=== PATIENT | female | born 1960 | race Caucasian/White ===

== ENCOUNTER → 2021-03-09 15:19 | Outpatient (CLI) | payer OTHER, SELFPAY | LOC: LABSPEC 15:23 | PROVIDERS: PCP Student in an Organized Health Care Education/Training Program; Referring Provider Otolaryngology Otolaryngology/Facial Plastic Surgery; Visit Provider Otolaryngology Otolaryngology/Facial Plastic Surgery | DX: J32.8 Other chronic sinusitis (principal) | CPT/HCPCS: 87070; 87205 ==

== ENCOUNTER 2021-06-13 11:15 | Emergency (ER) | payer BC, SELFPAY ==
[2021-06-13 11:16] VITALS: BP 173/98; PULSE 98; RESP 16; TEMP 35.8; O2SAT 99; BMI 46.9
--- NOTE | 2021-06-13 11:19 | NURSING ---
NO OLD EKGS
--- NOTE | 2021-06-13 11:20 | RAD_ITS ---
STUDY: X-RAY CHEST REASON FOR EXAM: Female, 60 years old. Chest pain TECHNIQUE: Single AP portable view of the chest. COMPARISON: None. FINDINGS: Mild elevation of the right hemidiaphragm. The lungs are clear and expanded. There is no demonstrated pleural abnormality. Normal size heart. Normal mediastinum and kelle. Normal visualized pulmonary arteries. Mild tortuosity of the thoracic aorta. Stable soft tissues and osseous structures. There is no demonstrated abnormality of the visualized soft tissue structures of the upper abdomen. RAD/Chest 1 View (Portable) IMPRESSION: Normal x-ray examination of the chest. Electronically Signed: Tad Todd MD at 12:02 EDT ,
--- NOTE | 2021-06-13 11:20 | EKG12_ITS ---
Test Reason : Blood Pressure : / mmHG Vent. Rate : 103 BPM Atrial Rate : 103 BPM P-R Int : 124 ms QRS Dur : 080 ms QT Int : 336 ms P-R-T Axes : 037 023 005 degrees QTc Int : 440 ms Sinus tachycardia Nonspecific ST abnormality Abnormal ECG Confirmed by SAKINA LEOS, LAURA ([id number]), web content editor DARA STARR ([id number]) on 06/16/2021 10:56:11 AM Referred By: DEV Confirmed By:LAURA PRESLEY MD
[2021-06-13 11:26] VITALS: PULSE 99; RESP 18; O2SAT 100
--- NOTE | 2021-06-13 11:36 | EDS_ITS ---
HPI History of Present Illness Chief Complaint: Chest Pain Narrative Narrative: 60-year-old female presenting with chest heaviness. She states has been intermittent for the last couple of days. She describes it as a sensation of just finishing a long run and how you feel heavy in the chest. She states that she does not feel short of breath, nauseous. She is not been diaphoretic. She does not have any lightheadedness. She states that distantly about 10 years ago she was hospitalized for chest pain and at that time they believed she had a previous AK. She states she had a normal cardiac catheterization. She states she used to have high blood pressure but was able to wean off of it because her blood pressures became normal. She does admit that she has gained weight since that time. She admits to sometimes having lower extremity edema which is worse recently. She states that she does ride around a lot for work and thinks this is the contributing factor. She currently takes no other medications for anything except for supplements. [facility] Medical History Diverticulitis HTN (hypertension) Home Medications ciprofloxacin HCl 500 mg PO BID #14 tablet 05/02/16 [Rx Last Taken Unknown] metronidazole 500 mg PO Q8H #30 tab 05/02/16 [Rx Last Taken Unknown] Allergy/AdvReac Type Severity Reaction Status Date / Time morphine Allergy Other Verified 06/13/21 11:16 Social History Smoking Status: Never smoker [facility] ED Constitutional Constitutional ED: Denies chills or fever(s) Eyes Eyes: Denies blurry vision or change in vision ENT ENT ED: Denies rhinorrhea or sore throat Cardiovascular Cardiovascular: Reports as per HPI Respiratory/Chest Respiratory/Chest: Denies cough or dyspnea Gastrointestinal Gastrointestinal: Denies abdominal pain, diarrhea, nausea or vomiting Genitourinary Genitourinary ED: Denies dysuria or hematuria Musculoskeletal Musculoskeletal: Denies arthralgias or myalgias Integumentary Denies rash Neurologic Neurologic: Denies headache(s) or paresthesias Psychiatric Psychiatric: Denies anxiety or depression EXAM Physical Exam Const Vital Signs: 06/13/21 11:16 06/13/21 11:26 06/13/21 11:28 Temperature 96.5 F L Temperature Source Temporal Pulse Rate 98 99 Respiratory Rate 16 18 Respiratory Effort Normal Blood Pressure 173/98 H Blood Pressure Mean 123 Pulse Ox 99 100 Oxygen Delivery Method Room Air Room Air 06/13/21 13:48 Temperature Temperature Source Pulse Rate 79 Respiratory Rate 16 Respiratory Effort Blood Pressure 163/91 H Blood Pressure Mean 115 Pulse Ox 99 Oxygen Delivery Method Room Air Positive well nourished General Appearance ED: NAD; Negative for pallor HEENT Reports moist mucous membranes normocephalic and atraumatic Eyes PERRL and EOMs intact bilaterally Chest Wall inspection of chest normal Resp normal respiratory effort and clear to auscultation bilaterally Cardio regular rate and regular rhythm Extremity General Extremety ED: Negative for tenderness Neuro oriented x3 and CN's II-XII intact bilaterally Sensorium / Orientation: awake and alert Psych mental status grossly normal Skin General Skin Exam: Negative for jaundice or pallor MDM MDM MDM Narrative Medical decision making narrative: Patient presenting with chest pain. EKG on my interpretation shows a sinus tachycardia with a ventricular to 102 bpm without sign of ischemic change. CBC and BMP are unremarkable. High- sensitivity troponin initially is 3. Delta troponin is 4. Chest x-ray my interpretation shows no acute cardiopulmonary process and the radiologist does agree. From a cardiac standpoint I feel she can be discharged. I do not believe she presents like a PE does not have any sharp or pleuritic pain. Patient's blood pressure is noted to be elevated today. She states is not usual ly this high. She is a history of hypertension but had been able to come off of medications. She wishes to follow-up outpatient. She asked for referral because her physician lives in [facility]. This was provided. Patient discharged in stable condition. Impression: 1. Chest pain 2. Elevated blood pressure Lab Data Attestation: I reviewed the patient's lab results. Labs: Laboratory Results - last 24 hr 06/13/21 06/13/21 06/13/21 11:23 11:23 14:00 WBC 9.8 RBC 4.77 Hgb 14.2 Hct 43.0 MCV 90.1 MCH 29.8 MCHC 33.0 RDW Std Deviation 48.0 H RDW Coeff of [place] 14.5 Plt Count 220 MPV 11.8 Immature Gran % (Auto) 0.700 Neut % (Auto) 57.6 Lymph % (Auto) 33.3 [place] % (Auto) 6.5 Eos % (Auto) 1.6 Baso % (Auto) 0.3 Absolute Neuts (auto) 5.7 Absolute Lymphs (auto) 3.27 Nucleated RBC % 0 Sodium 137 Potassium 3.9 Chloride 106 Carbon Dioxide 26.0 Anion Gap 5 BUN 13 Creatinine 0.77 Estim Creat Clear Calc 65.07 Est GFR (MDRD) Af Amer 99 Est GFR (MDRD) Non-Af 82 BUN/Creatinine Ratio 16.9 Glucose 111 H Calcium 9.2 Troponin I High Sens < 3 L 4 Radiography Diagnostic Testing: Clinical Impression(s) from Imaging Studies Chest X-Ray 06/13/21 11:20 IMPRESSION: Normal x-ray examination of the chest. Electronically Signed: Tad Todd MD at 12:02 EDT , Discharge Plan Triage Chief Complaint: Chest Pain Other Complaint: Chest Other ED Provider: Jay Dodge Dx/Rx/DC Orders Instructions: ED Chest Pain, Noncardiac, ED Hypertension, To Be Confirmed Prescriptions: No Action metronidazole 500 MG tablet 500 mg PO Q8H Qty: 30 RF: 0 ciprofloxacin HCl 500 MG tablet 500 mg PO BID Qty: 14 RF: 0 Primary Care Provider: Jace Ahuja Referrals: Jace Ahuja DO [Primary Care Provider] - Disposition Disposition: Home, Self Care
[2021-06-13 11:45] LABS: Absolute Lymphocyte Count 3.27 X10^3/uL (0.83-4.51); Absolute Neutrophil Count 5.7 X10^3/uL (2.0-7.7); Basophil# 0.03 X10^3/uL; Basophil% 0.3 % (0-1); Eosinophil# 0.16 X10^3/uL; Eosinophils% 1.6 % (0-5); Hemoglobin 14.2 g/dL (12.0-15.0); Lymphocyte # 3.27 X10^3/ul (0.83-4.51); Lymphocyte % 33.3 % (19-41); Mean Corpuscular Hgb 29.8 pg (27.0-32.0); Mean Corpuscular Volume 90.1 fL (81-99); Mean Platelet Vol. 11.8 fl (6.2-12.0); Monocyte# 0.64 X10^3/uL; Monocyte% 6.5 % (0-10); NRBC Flagged by Analyzer 0 % (0-5); Neutrophil # 5.65 X10^3/uL (2.7-7.7); Neutrophil % 57.6 % (47-70); Platelet Count 220 K/mm3 (150-450); RBC Distribution Width CV 14.5 % (11.6-14.6); Red Blood Count 4.77 M/mm3 (4.2-5.4); White Blood Count 9.8 K/mm3 (4.4-11.0)
[2021-06-13 12:03] LABS: Anion Gap 5 (5-15); BUN 13 mg/dL (7-18); BUN/Creat Ratio 16.9 RATIO (10-20); Calcium,Total 9.2 mg/dL (8.5-10.1); Chloride 106 mmol/L (98-107); Creatinine, Serum 0.77 mg/dL (0.55-1.02); EST Glomerular Filtration Rate 82 mL/min (>60); Est Glom Filt Rate - Afr Amer 99 mL/min (>60); Estimated Creatinine Clearance 65.07 ml/min; Glucose 111 mg/dL (74-106); Potassium 3.9 mmol/L (3.5-5.1); Sodium Level 137 mmol/L (136-145); Troponin-I HS < 3 pg/mL (3.0-54.0)
[2021-06-13 13:48] VITALS: BP 163/91; PULSE 79; RESP 16; O2SAT 99
[2021-06-13 14:27] LABS: Troponin-I HS 4 pg/mL (3.0-54.0)
[2021-06-13 15:00] VITALS: BP 170/86; PULSE 71; RESP 16; O2SAT 96
[2021-06-13 15:02] VITALS: BP 170/86; PULSE 71; RESP 16; O2SAT 95
== END 2021-06-13 15:03 | disposition home or self-care (01) ==
PROVIDERS: Emergency Provider Student in an Organized Health Care Education/Training Program; PCP Student in an Organized Health Care Education/Training Program; Visit Provider Student in an Organized Health Care Education/Training Program
DX: R07.9 Chest pain, unspecified (principal); R03.0 Elevated blood-pressure reading, without diagnosis of hypertension
CPT/HCPCS: 71045; 80048; 84484; 85025; 93005; 99284; J7030; A4216

== ENCOUNTER 2024-04-15 19:04 | Emergency (ER) | payer BC, SELFPAY ==
[2024-04-15 19:11] VITALS: BP 186/98; PULSE 100; RESP 16; TEMP 36.6; O2SAT 100
[2024-04-15 19:13] VITALS: BMI 28.8
[2024-04-15] MEDS: Metoprolol(XL)Succ 50 MG Tablet PO (20:17)
--- NOTE | 2024-04-15 20:17 | EDS_ITS ---
HPI History of Present Illness Chief Complaint: Hypertension Narrative Narrative: 63-year-old female with history of high blood pressure has been out of her medication for 4 days and presents with elevated blood pressure. She states she cannot fill her medication until her primary care appointment next week. She takes metoprolol 50 mg and atorvastatin in the morning. She states this evening she could tell her blood pressure was up but cannot describe exactly how. She went to the fire station and a manual reading was 200 systolic prompting her to come in. She denies headache, chest pain, shortness of breath, nausea or vomiting, abdominal or flank pain, or hematuria. [facility] Medical History HTN (hypertension) Diverticulitis Home Medications ?Medication ?Instructions ?Recorded ?Last Taken ?Type ciprofloxacin HCl 500 mg tablet 500 mg PO BID ##14 05/02/16 Unknown Rx metronidazole 500 mg tablet 500 mg PO Q8H #30 tabs 05/02/16 Unknown Rx Allergy/AdvReac Type Severity Reaction Status Date / Time morphine Allergy Other Verified 04/15/24 19:13 Surgical History (Updated 04/15/24 @ 19:58 by Lauren Adame) History of partial hysterectomy Social History Smoking Status: Current some day smoker tobacco type: cigarettes EXAM Physical Exam Const Vital Signs: 04/15/24 19:11 04/15/24 19:56 Temperature 97.8 F Temperature Source Temporal Pulse Rate 100 Respiratory Rate 16 Respiratory Effort Normal Respiratory Pattern Normal Blood Pressure 186/98 H Blood Pressure Mean 127 Pulse Ox 100 Oxygen Delivery Method Room Air Discharge Plan Triage Chief Complaint: Hypertension ED Midlevel Provider: Mable Ramirez ED Provider: Provider,Ed Physician Dx/Rx/DC Orders Prescriptions: No Action metronidazole 500 MG tablet 500 mg PO Q8H Qty: 30 0RF ciprofloxacin HCl 500 MG tablet 500 mg PO BID Qty: 14 0RF Primary Care Provider: Jace Ahuja Referrals: Jace Ahuja DO [Primary Care Provider] - Print Language: Ecuadorean
--- NOTE | 2024-04-15 20:17 | EX.ED.DYSGE1 ---
HPI <JULIÁN Johnson - Last Filed: 04/15/24 21:29> History of Present Illness Chief Complaint: Hypertension Narrative Narrative: 63-year-old female with history of high blood pressure has been out of her medication for 4 days and presents with elevated blood pressure. She states she cannot fill her medication until her primary care appointment next week. She takes metoprolol 50 mg and atorvastatin in the morning. She states this evening she could tell her blood pressure was up but cannot describe exactly how. She went to the [employer] station and a manual reading was 200 systolic prompting her to come in. She denies headache, chest pain, shortness of breath, nausea or vomiting, abdominal or flank pain, or hematuria. PFSH <JULIÁN Johnson - Last Filed: 04/15/24 21:29> [facility] Medical History (Updated 04/15/24 @ 21:13 by JULIÁN Johnson) HTN (hypertension) Diverticulitis Home Medications ?Medication ?Instructions ?Recorded ?Last Taken ?Type ciprofloxacin HCl 500 mg tablet 500 mg PO BID ##14 05/02/16 Unknown Rx metronidazole 500 mg tablet 500 mg PO Q8H #30 tabs 05/02/16 Unknown Rx metoprolol succinate 50 mg 50 mg PO DAILY #30 tabs 04/15/24 Unknown Rx tablet,extended release 24 hr Allergy/AdvReac Type Severity Reaction Status Date / Time morphine Allergy Other Verified 04/15/24 19:13 Surgical History (Updated 04/15/24 @ 19:58 by Lauren Adame) History of partial hysterectomy Social History Smoking Status: Current some day smoker tobacco type: cigarettes ROS <JULIÁN Johnson - Last Filed: 04/15/24 21:29> ROS ED ROS Narrative Constitutional: Negative for fever, chills, malaise. CVS: Negative for palpitations, chest pain, syncope. Respiratory: Negative for shortness of breath. GI: Negative for abdominal pain, nausea, vomiting. : Negative for hematuria. Neuro: Negative for headache, motor/sensory dysfunction. EXAM <JULIÁN Johnson - Last Filed: 04/15/24 21:29> Physical Exam Narrative Exam Narrative: CONST: Patient sitting in no acute distress. NECK: Normal inspection. RESP: No respiratory distress, CTAB. CVS: Regular rate and rhythm, no murmur, no gallop. ABD: Soft and nontender, no guarding or rebound, nondistended. SKIN: Color normal, no rash, warm, dry, intact. EXTREMITIES: Normal appearance, no pedal edema. NEURO: Alert and answering questions appropriately. Cranial nerves II through XII intact, 5/5 upper and lower extremity strength, normal [id number], normal gait. PSYCH: Normal affect. Const Vital Signs: 04/15/24 19:11 04/15/24 19:56 04/15/24 21:05 Temperature 97.8 F Temperature Source Temporal Pulse Rate 100 Respiratory Rate 16 Respiratory Effort Normal Respiratory Pattern Normal Blood Pressure 186/98 H 179/70 H Blood Pressure Mean 127 106 Pulse Ox 100 Oxygen Delivery Method Room Air 04/15/24 21:50 Temperature 97.8 F Temperature Source Pulse Rate 100 Respiratory Rate 16 Respiratory Effort Respiratory Pattern Blood Pressure 179/70 H Blood Pressure Mean 106 Pulse Ox 100 Oxygen Delivery Method <Dr. Reese Tovar DO - Last Filed: 04/16/24 00:27> Physical Exam Const Vital Signs: 04/15/24 19:11 04/15/24 19:56 04/15/24 21:05 Temperature 97.8 F Temperature Source Temporal Pulse Rate 100 Respiratory Rate 16 Respiratory Effort Normal Respiratory Pattern Normal Blood Pressure 186/98 H 179/70 H Blood Pressure Mean 127 106 Pulse Ox 100 Oxygen Delivery Method Room Air 04/15/24 21:50 Temperature 97.8 F Temperature Source Pulse Rate 100 Respiratory Rate 16 Respiratory Effort Respiratory Pattern Blood Pressure 179/70 H Blood Pressure Mean 106 Pulse Ox 100 Oxygen Delivery Method [facility] <JULIÁN Johnson - Last Filed: 04/15/24 21:29> [facility] Narrative Medical decision making narrative: 63-year-old female has asymptomatic hypertension because she ran out of her medications 4 days ago. She is prescribed metoprolol 50 mg once every morning. She reported a systolic BP of over 200 at the [employer] station. Here is 186/98 with otherwise stable vital signs. She has a completely benign exam and nonfocal neurological exam. She denies any symptoms such as headache, chest pain, shortness of breath etc. so does not require blood work according to ACEP guidelines for asymptomatic hypertension. I ordered a dose of her p.o. metoprolol succinate 50 mg and she is trending down after an hour to 179/70. I refilled her medication and advised her to follow-up with her primary care doctor. She was discharged in stable condition. <Dr. Reese Tovar DO - Last Filed: 04/16/24 00:27> [facility] Narrative Medical decision making narrative: 63-year-old female has asymptomatic hypertension because she ran out of her medications 4 days ago. She is prescribed metoprolol 50 mg once every morning. She reported a systolic BP of over 200 at the [facility]. Here is 186/98 with otherwise stable vital signs. She has a completely benign exam and nonfocal neurological exam. She denies any symptoms such as headache, chest pain, shortness of breath etc. so does not require blood work according to ACEP guidelines for asymptomatic hypertension. I ordered a dose of her p.o. metoprolol succinate 50 mg and she is trending down after an hour to 179/70. I refilled her medication and advised her to follow-up with her primary care doctor. She was discharged in stable condition. ED attending note: I evaluated the patient in conjunction with the [facility]. I agree with his/her statements and above findings. I have personally performed a face to face assessment of the patient and have reviewed the [facility] Note. I performed a substantive portion of the visit including all aspects of the following. I personally saw the patient performed chart review, physical exam, reviewed labs, imaging (if obtained), and formulated a treatment and management plan. This note was generated with [employer] dictation software. It may contain incorrect words, spelling, and punctuation that were not noted in review of the chart prior to signing. Discharge Plan Triage Chief Complaint: Hypertension ED Midlevel Provider: Mable Ramirez ED Provider: Reese Tovar Dx/Rx/DC Orders Clinical Impression: Chronic hypertension, Hx of medication noncompliance Instructions: Blood Pressure Check Steps Prescriptions: New metoprolol succinate 50 mg tablet extended release 24 hr 50 mg PO DAILY Qty: 30 0RF No Action metronidazole 500 MG tablet 500 mg PO Q8H Qty: 30 0RF ciprofloxacin HCl 500 MG tablet 500 mg PO BID Qty: 14 0RF Primary Care Provider: Yee Vasquez LEARNING AND DEVELOPMENT CONSULTANT Referrals: Jace Ahuja DO [Non-Staff] - Activity Restrictions/Additional Instructions: Restart your blood pressure medication and follow-up with your primary care doctor Print Language: Lao Disposition Disposition: Home, Self Care Discharge Date/Time: 04/15/24 21:53
[2024-04-15 21:05] VITALS: BP 179/70
[2024-04-15 21:50] VITALS: BP 179/70; PULSE 100; RESP 16; TEMP 36.6; O2SAT 100
== END 2024-04-15 21:53 | disposition home or self-care (01) ==
PROVIDERS: Emergency Provider Emergency Medicine; PCP Nurse Practitioner Primary Care; Visit Provider Emergency Medicine
DX: I10 Essential (primary) hypertension (principal); Z91.148 Patient's other noncompliance with medication regimen for other reason; F17.210 Nicotine dependence, cigarettes, uncomplicated
CPT/HCPCS: 99284; A4216